=== PATIENT | male | born 1940 | race Caucasian/White ===

== ENCOUNTER 2025-02-21 13:52 | Outpatient (OUT) | payer MEDICARE, OTHER, SELFPAY ==
--- NOTE | 2025-02-21 15:01 | P.CN_ITS ---
Consult Note: HPI Data of Consult Patient: new to practice Consult date: 02/21/25 Requesting Physician: Ana Arnold MD Primary Care Provider: DENZEL GIBBS Consult Narrative Reason for consult: low back pain Narrative: 84yom who presents for evaluation. longstanding low back pain history. had caudal epidural done several years ago, which provided significant relief. imaging reviewed, significant for multilevel stenosis, worst at l4-5, as well as multilevel spondylosis and facet arthropathy. continues in a series of provider directed home exercises >6 weeks, without benefit. uses tylenol as needed. denies adverse med side effects. cc:: CC: Ana Arnold MD Review of Systems ROS Status of ROS 10 or more systems reviewed and unremark able except as noted in history and below Exam Narrative Exam Narrative: Psych-alert and oriented x 3. Attentive and appropriate, constitutionally normal, displays normal mood and affect per situation. There are no obvious deficits in memory, reasoning, or intellect.? Skin-no obvious rashes, bruising, erythema noted to the patient's area of pain.? Extremities- extremities are warm with minimal edema and palpable pulses. Lumbar-tenderness to palpation noted in the lumbar spine and paraspinal musculature. Pain is elicited with flexion, extension, and lateral rotation of the lumbar spine. Range of motion is diminished with these motions. Facet loading maneuvers are positive.? Strength-noted to be unremarkable Sensory-no notable sensory deficits in the bilateral lower extremities to touch or pinprick in all dermatomal distributions with the exception to decreased sensation to the bilateral L4, 5 dermatomal distribution Coordination remains intact.? Gait remains non-antalgic. Assessment and Plan Assessment and Plan (1) Lumbar stenosis with neurogenic claudication: Plan 84yom who presents for evaluation. failed conservative measures, as noted. imaging reviewed, as noted. discussed that if pain were to worsen, would proceed with bilateral l4-5 tfesi under fluoroscopic guidance. he is in agreement. meds reviewed, no changes. follow up after procedure.
== END 2025-02-21 13:53 | disposition home or self-care (01) ==
LOC: PM 13:52
PROVIDERS: PCP Family Medicine; Visit Provider Anesthesiology
DX: M48.062 Spinal stenosis, lumbar region with neurogenic claudication (principal)
CPT/HCPCS: G0463